=== PATIENT | male | born 1985 | race Hispanic/Latino ===

== ENCOUNTER 2018-11-03 12:23 | Emergency (ER) | payer OTHER ==
[~2018-11-03] VITALS: Ht 167.6 cm; Wt 97.7 kg
[2018-11-03] MEDS ORDERED: MUCI600T31 PO (12:27)
[2018-11-03] MEDS ORDERED: IBUP-1022 PO (12:27)
[2018-11-03] MEDS ORDERED: IBUPROFEN 800 MG TAB PO ONE (12:45)
[2018-11-03] MEDS ORDERED: ACETAMINOPHEN 325 MG TAB PO ONE (12:45)
[2018-11-03 13:23] LABS: MONO SCRN NEGATIVE (NEGATIVE)
[2018-11-03 13:40] LABS: INFLUENZA A AMPLIFICATION POSITIVE (NEGATIVE); INFLUENZA B AMPLIFICATION NEGATIVE (NEGATIVE)
[2018-11-03] MEDS ORDERED: MAGICMW SSP (13:43)
[2018-11-03 13:45] VITALS: BP 127/58
== END 2018-11-03 14:04 | disposition home or self-care (01) ==
LOC: M ED 12:23
DX: J09.X9 Influenza due to identified novel influenza A virus with other manifestations (principal); F17.200 Nicotine dependence, unspecified, uncomplicated

== ENCOUNTER 2018-11-17 19:20 | Emergency (ER) | payer OTHER ==
[~2018-11-17] VITALS: Ht 167.6 cm; Wt 97.7 kg
[~2018-11-17 19:20] MED LIST: IBUP-1022 PO; MAGICMW SSP; MUCI600T31 PO
[2018-11-17] MEDS ORDERED: NS 1,000 ML IV ONE (19:45)
[2018-11-17] MEDS ORDERED: PANTOPRAZOLE 40MG INJ (PROTONIX) (C9113) IV ONE (19:45)
[2018-11-17] MEDS ORDERED: ONDANSETRON 4MG/2ML VIAL (J2405) IV ONE (19:45)
[2018-11-17 19:54] LABS: BASO # 0.1 10^3/uL (0.0-0.2); BASO % 0.4 % (0.0-1.0); EOS # 0.1 10^3/uL (0.0-0.50); EOS % 0.9 % (0.0-3.0); HEMATOCRIT 43.2 % (42.0-52.0); HEMOGLOBIN 14.9 g/dl (13.5-17.5); LYMPH # 3.7 10^3/uL (1.5-4.5); MEAN CORPUSCULAR HEMOGLOBIN 28.5 pg (27.0-33.0); MEAN CORPUSCULAR HGB CONC 34.5 g/dl (32.0-36.5); MEAN CORPUSCULAR VOLUME 82.8 fl (80.0-96.0); MONO # 0.8 10^3/uL (0.0-0.8); MONO % 5.7 % (0.0-5.0); NEUTROPHILS # 8.6 10^3/uL (1.8-7.7); NEUTROPHILS % 64.7 % (36.0-66.0); PLATELET COUNT, AUTOMATED 433 10^3/uL (150-450); RED BLOOD COUNT 5.22 10^6/uL (4.30-6.10); WHITE BLOOD COUNT 13.2 10^3/uL (4.0-10.0)
[2018-11-17 20:21] LABS: ALBUMIN 4.1 GM/DL (3.2-5.2); ALT/SGPT 37 U/L (12-78); AMYLASE 97 U/L (25-115); BILIRUBIN,DIRECT 0.1 MG/DL (0.0-0.2); BILIRUBIN,TOTAL 0.5 MG/DL (0.2-1.0); BLOOD UREA NITROGEN 13 MG/DL (7-18); CALCIUM LEVEL 11.4 MG/DL (8.5-10.1); CARBON DIOXIDE LEVEL 27 MEQ/L (21-32); CHLORIDE LEVEL 107 MEQ/L (98-107); CREATININE FOR GFR 1.07 MG/DL (0.70-1.30); GLOMERULAR FILTRATION RATE > 60.0 (>60); GLUCOSE, FASTING 88 MG/DL (70-100); LIPASE 200 U/L (73-393); POTASSIUM SERUM 4.1 MEQ/L (3.5-5.1); SODIUM LEVEL 140 MEQ/L (136-145); TOTAL PROTEIN 7.5 GM/DL (6.4-8.2)
--- NOTE | 2018-11-17 20:55 | REPVR ---
EXAM: US Abdomen Limited, Right Upper Quadrant EXAM DATE/TIME: 11/17/2018 8:18 PM CLINICAL HISTORY: 33 years old, male; Pain; Abdominal pain; Acute; Additional info: Epigastric/ruq pain TECHNIQUE: Imaging protocol: Real-time ultrasound of the abdomen with image documentation. Examination was focused on the right upper quadrant. COMPARISON: No relevant prior studies available. FINDINGS: Liver: Normal appearing liver. Gallbladder: The gallbladder wall measures less than 2 mm. There is a 1 CM stone at the neck of the gallbladder at 1.5 CM stone in the dependent portion of gallbladder. Common bile duct: Normal common bile duct measuring 5 mm. Pancreas: The pancreas is obscured by bowel gas. Right kidney: The right kidney measures 10.9 CM in length by 6.7 CM in thickness. There is no evidence of hydronephrosis. IMPRESSION: 1 CM calcified stone in the neck of the gallbladder and also a 1.5 CM stone dependent portion of gallbladder. There is no evidence of biliary dilatation. Electronically signed by: Amarjit Munoz On 11/17/2018 20:54:45 PM
[2018-11-17] MEDS ORDERED: AUGM500T34 PO (21:56)
[2018-11-17] MEDS ORDERED: PROT1TAB2 PO (21:56)
[2018-11-17] MEDS ORDERED: AUGMENTIN 500 MG TAB PO ONE (22:00)
[2018-11-17 22:02] VITALS: BP 129/78
--- NOTE | 2018-11-18 13:40 | ED PDOC ---
Post-Departure Follow-Up dr coates and naina diaz faxed formal report of [facility] for fu Adriana Wick MD Nov 18, 2018 13:40
== END 2018-11-17 22:15 | disposition home or self-care (01) ==
LOC: M ED 19:20
DX: K80.70 Calculus of gallbladder and bile duct without cholecystitis without obstruction (principal); Z87.891 Personal history of nicotine dependence
CPT/HCPCS: 76705; 80048; 80076; 82150; 83690; 85025; 96361; 96374; 96375; 99284; C9113; J2405

== ENCOUNTER 2019-07-30 10:13 | Emergency (ER) | payer OTHER ==
[~2019-07-30] VITALS: Ht 167.6 cm; Wt 97.7 kg
[~2019-07-30 10:13] MED LIST changes: +AUGM500T34 PO; +PROT1TAB2 PO
[2019-07-30] MEDS ORDERED: TIZA4TAB4 (10:19)
[2019-07-30] MEDS ORDERED: NS 1,000 ML IV ONE (11:15)
[2019-07-30] MEDS ORDERED: DICYCLOMINE 10 MG CAP PO ONE (11:15)
[2019-07-30 11:38] LABS: APPEARANCE, URINE CLEAR (CLEAR); BACTERIA, URINE AUTO NEGATIVE (NEGATIVE); BASO % 0.6 % (0.0-1.0); BILIRUBIN, URINE AUTO NEGATIVE (NEGATIVE); BLOOD, URINE BLOOD 1+ (NEGATIVE); COLOR, URINE YELLOW (YELLOW); EOS % 0.6 % (0.0-3.0); GLUCOSE, URINE (UA) AUTO NEGATIVE (NEGATIVE); HEMATOCRIT 48.2 % (42.0-52.0); HEMOGLOBIN 16.6 g/dl (13.5-17.5); KETONE, URINE AUTO NEGATIVE (NEGATIVE); LEUKOCYTE ESTERASE, URINE AUTO NEGATIVE (NEGATIVE); LYMPH # 1.8 10^3/uL (1.5-5.0); LYMPH % 33.7 % (24.0-44.0); MEAN CORPUSCULAR HGB CONC 34.4 g/dl (32.0-36.5); MEAN CORPUSCULAR VOLUME 84.3 fl (80.0-96.0); MONO # 0.7 10^3/uL (0.0-0.8); MONO % 12.7 % (0.0-5.0); MUCUS, URINE SMALL (NEGATIVE); NEUTROPHILS # 2.8 10^3/uL (1.5-8.5); NEUTROPHILS % 50.7 % (36.0-66.0); NITRITE, URINE AUTO NEGATIVE (NEGATIVE); PLATELET COUNT, AUTOMATED 315 10^3/uL (150-450); PROTEIN, URINE AUTO NEGATIVE (NEGATIVE); RBC, URINE AUTO 6 /HPF (0-3); RED BLOOD COUNT 5.72 10^6/uL (4.30-6.10); SPECIFIC GRAVITY URINE AUTO 1.024 (1.002-1.035); SQUAMOUS EPITHELIAL CELL UR AU 0 /HPF (0-6); UROBILINOGEN, URINE AUTO 0.2 mg/dL (0.0-2.0); WBC, URINE AUTO 1 /HPF (0-3); WHITE BLOOD COUNT 5.4 10^3/uL (4.0-10.0)
[2019-07-30 12:03] LABS: ALBUMIN 3.8 GM/DL (3.2-5.2); ALT/SGPT 58 U/L (12-78); BILIRUBIN,DIRECT 0.2 MG/DL (0.0-0.2); BILIRUBIN,TOTAL 0.6 MG/DL (0.2-1.0); BLOOD UREA NITROGEN 16 MG/DL (7-18); CALCIUM LEVEL 11.1 MG/DL (8.5-10.1); CARBON DIOXIDE LEVEL 25 MEQ/L (21-32); CHLORIDE LEVEL 106 MEQ/L (98-107); CREATININE FOR GFR 1.08 MG/DL (0.70-1.30); GLOMERULAR FILTRATION RATE > 60.0 (>60); GLUCOSE, FASTING 93 MG/DL (70-100); LIPASE 153 U/L (73-393); POTASSIUM SERUM 4.3 MEQ/L (3.5-5.1); SODIUM LEVEL 137 MEQ/L (136-145); TOTAL PROTEIN 7.4 GM/DL (6.4-8.2)
[2019-07-30 12:41] VITALS: BP 135/80
[2019-08-01 11:40] LABS: HEPATITIS B SURFACE ANTIGEN NEGATIVE (NEGATIVE)
[2019-08-01 11:57] LABS: HEPATITIS B CORE ANTIBODY IGM NEGATIVE (NEGATIVE); HEPATITIS C VIRUS ABY INDEX 0.2 INDEX (<0.8)
[2019-08-01 11:59] LABS: HEPATITIS A ANTIBODY IGM NEGATIVE (NEGATIVE)
== END 2019-07-30 12:47 | disposition home or self-care (01) ==
LOC: M ED 10:13
DX: R19.7 Diarrhea, unspecified (principal); Z79.899 Other long term (current) drug therapy

== ENCOUNTER 2020-02-16 09:20 | Emergency (ER) | payer OTHER ==
[~2020-02-16] VITALS: Ht 167.6 cm; Wt 103.1 kg
[~2020-02-16 09:20] MED LIST changes: +TIZA4TAB4
[2020-02-16 09:21] VITALS: BP 137/75
[2020-02-16] MEDS ORDERED: MELO15TA28 (09:27)
[2020-02-16] MEDS ORDERED: DULO1CAP5 (09:27)
[2020-02-16] MEDS ORDERED: KETOROLAC 60MG 2ML VIAL IM ONE (09:45)
[2020-02-16] MEDS ORDERED: ACETAMINOPHEN 325 MG TAB PO ONE (09:45)
[2020-02-16] MEDS ORDERED: KETO10TAB PO (10:21)
[2020-02-16] MEDS ORDERED: ROBA750T4 PO (10:21)
== END 2020-02-16 10:27 | disposition home or self-care (01) ==
LOC: M ED 09:20
DX: M54.41 Lumbago with sciatica, right side (principal); M54.42 Lumbago with sciatica, left side; Z87.891 Personal history of nicotine dependence
CPT/HCPCS: 99282; J1885